=== PATIENT | female | born 1980 | race Caucasian/White ===

== ENCOUNTER 2020-08-30 04:58 | Emergency (ER) | payer OTHER ==
[~2020-08-30 04:58] MED LIST: IBUPROFEN600 MG PO; PRAMET FA TAB1 EA PO
[2020-08-30 06:21] LABS: HEMOGLOBIN 13.2 gm/dl (12.3-15.3); RED BLOOD COUNT 3.9 M/UL (4.00-5.10)
[2020-08-30 06:37] LABS: BUN/CREATININE RATIO 13 (0-10)
== END 2020-08-30 08:30 | disposition home or self-care (01) ==
LOC: ER1 04:58
PROVIDERS: Internal Medicine
DX: R10.11 Right upper quadrant pain (principal); R11.0 Nausea; I10 Essential (primary) hypertension; F17.210 Nicotine dependence, cigarettes, uncomplicated
CPT/HCPCS: 80053; 81001; 83690; 84703; 85025; 87077; 87086; 96374; 96375; 99284; J1885; J2270; J2405; J7120; Q9967